=== PATIENT | male | born 2000 | race Caucasian/White ===

== ENCOUNTER 2021-01-19 06:04 | Day surgery (SDC) | payer BC ==
[2021-01-12 14:58] VITALS: BMI 23.3
[2021-01-19] MEDS ORDERED: SODIUM CHLORIDE 0.9% P/F 10 ML VIAL IJ ONE (07:11)
[2021-01-19] MEDS ORDERED: BUPIVACAINE LIPOSOME/PF (EXPAREL) 266 MG/20 ML VIAL ONE (07:11)
[2021-01-19] MEDS ORDERED: BUPIVACAINE HCL/PF 0.5% (5MG/ML) 10 ML VIAL ONE (07:11)
[2021-01-19] MEDS ORDERED: MIDAZOLAM HCL 2 MG/2 ML SINGLE DOSE VIAL ONE (07:11)
[2021-01-19] MEDS ORDERED: VANCOMYCIN 1,000 MG VIAL (RESTRICTED TO ID ONLY) ONE (07:16)
[2021-01-19] MEDS ORDERED: EPINEPHrine 1:1,000 1 MG/1 ML - 30ML VIAL (INJECTION) ONE (07:16)
[2021-01-19] MEDS ORDERED: SUCCINYLCHOLINE CHLORIDE 200 MG/10 ML SYRINGE ONE (07:18)
[2021-01-19] MEDS ORDERED: PROPOFOL 20 ML ONE ×2 (07:18)
[2021-01-19] MEDS ORDERED: TRANEXAMIC ACID 1000 MG/10 ML VIAL ONE (07:22)
[2021-01-19] MEDS ORDERED: ceFAZolin SODIUM 1 GM VIAL ONE (07:22)
[2021-01-19] MEDS ORDERED: KETOROLAC TROMETHAMINE 30 MG/1 ML VIAL ONE (08:18)
[2021-01-19] MEDS ORDERED: ONDANSETRON 4 MG/2 ML VIAL ONE (08:18)
[2021-01-19] MEDS ORDERED: DEXAMETHASONE SOD PHOSPHATE 4 MG/1 ML VIAL ONE (08:18)
[2021-01-19] MEDS ORDERED: ONDANSETRON 4 MG/2 ML VIAL IVPUSH PRN (08:21)
[2021-01-19] MEDS ORDERED: oxyCODONE HCL 5 MG TABLET PO PRN ×2 (08:21)
[2021-01-19] MEDS ORDERED: ACETAMINOPHEN 1000 MG/100 ML VIAL IVPB ONE (08:21)
[2021-01-19] MEDS ORDERED: LACTATED RINGERS SOLUTION 1,000 ML IV SCH (08:30)
[2021-01-19] MEDS ORDERED: ACETAMINOPHEN INJECTION 100 ML IVPB ONE (10:53)
[2021-01-19 11:13] VITALS: TEMP 98.4
[2021-01-19 13:44] VITALS: PULSE 59
[2021-01-19 13:47] VITALS: BP 127/60
== END 2021-01-19 13:15 | disposition home or self-care (01) ==
LOC: FASU 06:04
PROVIDERS: ATTEND Orthopaedic Surgery
PROC: 0SQC4ZZ Repair Right Knee Joint, Percutaneous Endoscopic Approach (ICD-10-PCS; 2021-01-19)
PROC: 0MRN47Z Replacement of Right Knee Bursa and Ligament with Autologous Tissue Substitute, Percutaneous Endoscopic Approach (ICD-10-PCS; principal; 2021-01-19 08:28)
DX: S83.511A Sprain of anterior cruciate ligament of right knee, initial encounter (principal); X58.XXXA Exposure to other specified factors, initial encounter; Y93.9 Activity, unspecified; Y92.9 Unspecified place or not applicable; S83.281A Other tear of lateral meniscus, current injury, right knee, initial encounter
CPT/HCPCS: 94760; J0131